=== PATIENT | female | born 2000 | race African-American/Black ===

== ENCOUNTER 2021-01-21 21:16 | Emergency (ER) | payer OTHER ==
[~2021-01-21] VITALS: Ht 165.1 cm; Wt 57.9 kg
[2021-01-22] MEDS ORDERED: MIRA3350 PO (01:22)
[2021-01-22] MEDS ORDERED: CIPR-249 PO (01:22)
[2021-01-22 02:16] VITALS: BP 113/61
== END 2021-01-22 02:17 | disposition home or self-care (01) ==
LOC: M ED 21:16
DX: N39.0 Urinary tract infection, site not specified (principal); K59.00 Constipation, unspecified

== ENCOUNTER 2021-06-06 14:30 | Emergency (ER) | payer OTHER ==
[~2021-06-06] VITALS: Ht 167.6 cm; Wt 59.1 kg
[~2021-06-06 14:30] MED LIST: CIPR-249 PO; MIRA3350 PO
[2021-06-06 20:56] VITALS: BP 116/70
[2021-06-06 23:26] LABS: GC DNA AMPLIFICATION NEGATIVE (NEGATIVE)
[2021-06-07] MEDS ORDERED: DOXY-443 PO (12:25)
--- NOTE | 2021-06-07 12:35 | ED PDOC ---
Post-Departure Follow-Up When checking lab work from prior patients yesterday, Patient tested positive fo r Chlamydia. Spoke to patient on the phone discussed follow up care and that Doxycycline was sent to her pharmacy to take for the next 7 days. Pt was in agreeance Janice Dupont NP 06/07/21 [id number] JANICE DUPONT Jun 07, 2021 12:35
== END 2021-06-06 20:58 | disposition home or self-care (01) ==
LOC: M ED 14:30
DX: Z32.00 Encounter for pregnancy test, result unknown (principal); N92.6 Irregular menstruation, unspecified; M54.50 Low back pain, unspecified

== ENCOUNTER 2022-05-03 08:34 | Emergency (ER) | payer OTHER ==
[~2022-05-03] VITALS: Ht 167.6 cm; Wt 72.9 kg
[2022-05-03 08:34] VITALS: BP 122/68
[~2022-05-03 08:34] MED LIST changes: +DOXY-443 PO
== END 2022-05-03 08:47 | disposition left against medical advice (07) ==
LOC: M ED 08:34
DX: Z53.21 Procedure and treatment not carried out due to patient leaving prior to being seen by health care provider (principal)

== ENCOUNTER 2022-06-26 09:17 | Observation (INO) | payer OTHER ==
[~2022-06-26] VITALS: Ht 167.6 cm; Wt 77.5 kg
[2022-06-26 10:48] LABS: BASO % 0.3 % (0.0-1.0); EOS # 0.1 10^3/uL (0.0-0.5); EOS % 2.3 % (0.0-3.0); HEMATOCRIT 24.5 % (36.0-47.0); LYMPH # 2.2 10^3/uL (1.5-5.0); LYMPH % 35.4 % (24.0-44.0); MEAN CORPUSCULAR HEMOGLOBIN 20.9 pg (27.0-33.0); MEAN CORPUSCULAR HGB CONC 28.6 g/dl (32.0-36.5); MEAN CORPUSCULAR VOLUME 73.1 fl (80.0-96.0); MONO # 0.5 10^3/uL (0.0-0.8); MONO % 8.1 % (2.0-8.0); NEUTROPHILS # 3.2 10^3/uL (1.5-8.5); NEUTROPHILS % 53.4 % (36.0-66.0); PLATELET COUNT, AUTOMATED 311 10^3/uL (150-450); RED BLOOD COUNT 3.35 10^6/uL (4.00-5.40); WHITE BLOOD COUNT 6.1 10^3/uL (4.0-10.0)
[2022-06-26 11:13] LABS: BLOOD UREA NITROGEN 11 MG/DL (9-23); CALCIUM LEVEL 8.6 MG/DL (8.5-10.1); CARBON DIOXIDE LEVEL 26 MMOL/L (20-31); CHLORIDE LEVEL 104 MMOL/L (98-107); CREATININE FOR GFR 0.72 MG/DL (0.55-1.30); GLOMERULAR FILTRATION RATE > 60.0 (>60); GLUCOSE, FASTING 95 MG/DL (60-100); HCG, SERUM QUANTITATIVE < 2.6 MIU/ML (<4.2); POTASSIUM SERUM 3.7 MMOL/L (3.5-5.1); SODIUM LEVEL 139 MMOL/L (136-145)
[2022-06-26 12:31] LABS: INR 0.93; PROTHROMBIN TIME 12.7 SECONDS (12.5-14.5)
[2022-06-26 12:32] LABS: PARTIAL THROMBOPLASTIN TIME 24.5 SECONDS (24.8-34.2)
[2022-06-26 12:37] LABS: ALBUMIN 3.7 G/DL (3.2-5.2); ALKALINE PHOSPHATASE 70 U/L (46-116); ALT/SGPT 19 U/L (7.0-40); AST/SGOT 16 U/L (<34); BILIRUBIN,DIRECT < 0.1 MG/DL (<0.4); BILIRUBIN,TOTAL 0.2 MG/DL (0.3-1.2); TOTAL PROTEIN 6.5 G/DL (5.7-8.2)
[2022-06-26] MEDS ORDERED: TRANEXAMIC ACID INJection 1,000 MG in IV FLUID PLACE HOLDER 1 EA IV ONE (13:25)
[2022-06-26 13:33] LABS: IRON (FE) 18 UG/DL (50-170); PERCENT SATURATION 5.4 % (13.2-45.0); TOTAL IRON BINDING CAPACITY 331 UG/DL (250-425)
[2022-06-26 13:35] LABS: FERRITIN 3.7 NG/ML (7.3-270.7)
[2022-06-26 13:36] LABS: FOLATE 10.4 NG/ML (>5.4); VITAMIN B12 LEVEL 631 PG/ML (211-911)
[2022-06-26] MEDS ORDERED: TRANEXAMIC ACID INJection 1,000 MG in NS 100 ML IV ONE (13:40)
[2022-06-26 14:36] LABS: RSV AMPLIFICATION NEGATIVE (NEGATIVE)
[2022-06-26] MEDS ORDERED: HOME MED LIST COMPLETE! XX SCH (14:40)
[2022-06-26 15:10] VITALS: BP 110/70
[2022-06-26 16:00] VITALS: BP 109/51
[2022-06-26 16:26] LABS: GC DNA AMPLIFICATION NEGATIVE (NEGATIVE)
[2022-06-26 17:00] VITALS: BP 114/59
[2022-06-26] MEDS: medroxyPROGESTERone 5MG TABLET PO SCH ×2 (17:26→21:56)
[2022-06-26 18:00] VITALS: BP 119/57
[2022-06-26 20:00] VITALS: BP 101/51
[2022-06-26 20:33] LABS: BASO % 0.1 % (0.0-1.0); EOS # 0.1 10^3/uL (0.0-0.5); EOS % 1.2 % (0.0-3.0); HEMOGLOBIN 7.2 g/dl (12.0-15.5); LYMPH # 2.2 10^3/uL (1.5-5.0); MEAN CORPUSCULAR HEMOGLOBIN 22.9 pg (27.0-33.0); MEAN CORPUSCULAR HGB CONC 31.3 g/dl (32.0-36.5); MONO # 0.5 10^3/uL (0.0-0.8); MONO % 6.5 % (2.0-8.0); NEUTROPHILS # 5.2 10^3/uL (1.5-8.5); NEUTROPHILS % 64.8 % (36.0-66.0); PLATELET COUNT, AUTOMATED 254 10^3/uL (150-450); RED BLOOD COUNT 3.15 10^6/uL (4.00-5.40); WHITE BLOOD COUNT 8.1 10^3/uL (4.0-10.0)
[2022-06-27] VITALS (8 sets, daily range): BP systolic 84–117; BP diastolic 46–57
[2022-06-27 06:17] LABS: BASO % 0.2 % (0.0-1.0); EOS # 0.1 10^3/uL (0.0-0.5); EOS % 1.1 % (0.0-3.0); HEMATOCRIT 22.2 % (36.0-47.0); LYMPH # 2.4 10^3/uL (1.5-5.0); LYMPH % 29.7 % (24.0-44.0); MEAN CORPUSCULAR HGB CONC 31.5 g/dl (32.0-36.5); MONO # 0.6 10^3/uL (0.0-0.8); MONO % 7.1 % (2.0-8.0); NEUTROPHILS % 61.7 % (36.0-66.0); PLATELET COUNT, AUTOMATED 279 10^3/uL (150-450); RED BLOOD COUNT 3.04 10^6/uL (4.00-5.40); WHITE BLOOD COUNT 8.1 10^3/uL (4.0-10.0)
[2022-06-27] MEDS ORDERED: diphenhydrAMINE 25MG CAP PO ONE (07:10)
[2022-06-27] MEDS ORDERED: ACETAMINOPHEN 500 MG TAB PO ONE (07:10)
[2022-06-27] MEDS: medroxyPROGESTERone 5MG TABLET PO SCH ×2 (09:00→15:49)
[2022-06-27 13:44] LABS: BASO % 0.1 % (0.0-1.0); EOS # 0.1 10^3/uL (0.0-0.5); EOS % 1.2 % (0.0-3.0); HEMATOCRIT 26.5 % (36.0-47.0); HEMOGLOBIN 8.3 g/dl (12.0-15.5); LYMPH % 27.9 % (24.0-44.0); MEAN CORPUSCULAR HEMOGLOBIN 23.4 pg (27.0-33.0); MEAN CORPUSCULAR HGB CONC 31.3 g/dl (32.0-36.5); MEAN CORPUSCULAR VOLUME 74.6 fl (80.0-96.0); MONO # 0.5 10^3/uL (0.0-0.8); MONO % 6.9 % (2.0-8.0); NEUTROPHILS # 4.6 10^3/uL (1.5-8.5); NEUTROPHILS % 63.3 % (36.0-66.0); PLATELET COUNT, AUTOMATED 263 10^3/uL (150-450); RED BLOOD COUNT 3.55 10^6/uL (4.00-5.40); WHITE BLOOD COUNT 7.2 10^3/uL (4.0-10.0)
[2022-06-27] MEDS ORDERED: MEDR5TAB3 PO (16:54)
== END 2022-06-27 18:30 | disposition home or self-care (01) ==
LOC: M ED 11:28 → M PED 11:29
PROVIDERS: ADMIT Obstetrics & Gynecology; ATTEND Obstetrics & Gynecology
DX: D50.0 Iron deficiency anemia secondary to blood loss (chronic) (principal); N93.9 Abnormal uterine and vaginal bleeding, unspecified; E28.9 Ovarian dysfunction, unspecified; L68.0 Hirsutism; L70.9 Acne, unspecified; Z91.018 Allergy to other foods
CPT/HCPCS: 36415; 36430; 76830; 76856; 80048; 80076; 81000; 81015; 82607; 82728; 82746; 83550; 84702; 85025; 85610; 85730; 86850; 86900; 86901; 86920; 87086; 87210; 87631; 87661; 87810; 87850; 93976; 96374; 99283; P9016